=== PATIENT | female | born 1990 | race Caucasian/White ===

== ENCOUNTER 2021-05-13 17:34 | Emergency (ER) | payer MEDICAID ==
[~2021-05-13] VITALS: Ht 160 cm; Wt 99.8 kg
[2021-05-13 19:20] VITALS: BP 109/72
[2021-05-13 20:43] LABS: Urine Bacteria NONE SEEN /hpf (None Seen); Urine Blood Negative /uL (Negative); Urine Specific Gravity 1.034 (1.001-1.035); Urine WBC 3 /hpf (0 - 5)
== END 2021-05-13 22:26 | disposition home or self-care (01) ==
LOC: ER 17:34
DX: N93.9 Abnormal uterine and vaginal bleeding, unspecified (principal); R81 Glycosuria; E11.9 Type 2 diabetes mellitus without complications
CPT/HCPCS: 81001; 81025